=== PATIENT | female | born 1975 | race Caucasian/White ===

== ENCOUNTER 2017-08-29 11:55 | Observation (INO) | payer OTHER ==
[~2017-08-29] VITALS: Ht 162.6 cm; Wt 84.8 kg
[2017-08-29] MEDS ORDERED: PREN-134 PO (12:26)
[2017-08-29 15:48] VITALS: BP 127/79
[2017-08-29 18:39] LABS: RUBELLA SCREEN (IGG) IMMUNE (IMMUNE)
== END 2017-08-29 14:55 | disposition home or self-care (01) ==
LOC: 4S 11:55
PROVIDERS: ADMIT Obstetrics & Gynecology; ATTEND Obstetrics & Gynecology
DX: O48.0 Post-term pregnancy (principal); O09.523 Supervision of elderly multigravida, third trimester; Z3A.40 40 weeks gestation of pregnancy
CPT/HCPCS: 36415; 59025; 76811; 80307 ×8; 86592; 86762; 86900; 87340; G0378

== ENCOUNTER 2017-09-06 19:28 | Observation (INO) | payer OTHER ==
[~2017-09-06 19:28] MED LIST: PREN-134 PO
[2017-09-06 19:48] VITALS: BP 128/86
[2017-09-06 21:24] LABS: APPEARANCE,URINE CLOUDY (CLEAR); BILIRUBIN,URINE NEGATIVE (NEGATIVE); GLUCOSE, URINE (UA) NEGATIVE (NEGATIVE); KETONES,URINE NEGATIVE (NEGATIVE); LEUKOCYTE ESTERASE ,URINE NEGATIVE (NEGATIVE); NITRATE,URINE NEGATIVE (NEGATIVE); OCCULT BLOOD,URINE NEGATIVE (NEGATIVE); PROTEIN,URINE NEGATIVE (NEGATIVE); UROBILINOGEN,URINE 0.2 mg/dL (<=1.0)
[2017-09-08] MEDS ORDERED: IBUP-2070 PO (10:10)
[2017-09-08] MEDS ORDERED: DSS100 PO (10:12)
[2017-09-09] MEDS ORDERED: ACET1TAB12 PO (14:44)
== END 2017-09-07 00:15 | disposition home or self-care (01) ==
LOC: 4S 19:28
PROVIDERS: ADMIT Obstetrics & Gynecology; ATTEND Obstetrics & Gynecology
DX: O09.93 Supervision of high risk pregnancy, unspecified, third trimester (principal); O48.0 Post-term pregnancy; Z3A.41 41 weeks gestation of pregnancy
CPT/HCPCS: 59025; 76811; 80307 ×8; 81003; G0378 ×2